=== PATIENT | female | born 1985 | race Caucasian/White ===

== ENCOUNTER → 2020-07-07 | Outpatient (CLI) | payer OTHER ==
[~2020-07-07] MED LIST: LODINE CAP 300300 MG PO
== END ==
LOC: KOH-I 12:06
DX: M54.9 Dorsalgia, unspecified (principal); M47.814 Spondylosis without myelopathy or radiculopathy, thoracic region
CPT/HCPCS: 71046; 72070

== ENCOUNTER 2021-01-31 00:02 | Emergency (ER) | payer OTHER | END 2021-01-31 03:40 | disposition home or self-care (01) | LOC: ER1 00:02 | DX: U07.1 COVID-19 (principal); Z90.49 Acquired absence of other specified parts of digestive tract; Z90.89 Acquired absence of other organs; Z79.899 Other long term (current) drug therapy | CPT/HCPCS: 71045; 99283; U0002 ==

== ENCOUNTER 2021-02-02 15:06 | Emergency (ER) | payer OTHER ==
[~2021-02-02] VITALS: Ht 152.4 cm; Wt 135.6 kg
[2021-02-02] MEDS ORDERED: PROAIR HFA8.5 GM INH (16:28)
[2021-02-02] MEDS ORDERED: BENZONATATE200 MG PO (16:28)
[2021-02-02 19:41] LABS: HEMOGLOBIN 13.1 gm/dl (12.3-15.3); RED BLOOD COUNT 4.52 M/UL (4.00-5.10)
[2021-02-02 19:58] LABS: BUN/CREATININE RATIO 6 (0-10)
[2021-02-02] MEDS ORDERED: IBUPROFEN800 MG PO (23:20)
== END 2021-02-02 23:46 | disposition home or self-care (01) ==
LOC: ER1 15:06
PROVIDERS: Physician Assistant
DX: U07.1 COVID-19 (principal); J12.82 Pneumonia due to coronavirus disease 2019; Z90.49 Acquired absence of other specified parts of digestive tract
CPT/HCPCS: 71045; 80053; 82550; 82553; 83874; 84484; 85025; 85379; 93005; 99285; Q9967

== ENCOUNTER → 2021-07-21 | Outpatient (CLI) | payer OTHER ==
[~2021-07-21] MED LIST changes: +BENZONATATE200 MG PO; +IBUPROFEN800 MG PO; +PROAIR HFA8.5 GM INH
== END ==
LOC: KOH-I 08:36
DX: M25.562 Pain in left knee (principal); M25.561 Pain in right knee
CPT/HCPCS: 73562

== ENCOUNTER → 2022-03-03 | Outpatient (CLI) | payer OTHER ==
[2022-03-03 11:29] LABS: HEMOGLOBIN 13.7 gm/dl (12.3-15.3); RED BLOOD COUNT 4.65 M/UL (4.00-5.10); WHITE BLOOD COUNT 7.2 K/UL (4.5-11.0)
[2022-03-03 11:51] LABS: BUN/CREATININE RATIO 11 (0-10)
[2022-03-04 07:10] LABS: VITAMIN D, 25-HYDROXY 30.5 ng/mL (30.0-100.0)
[2022-03-06 00:06] LABS: ALT (SGPT) P5P 15 IU/L (0-40); APOLIPOPROTEIN A-1 132 mg/dL (116-209); AST (SGOT) P5P 21 IU/L (0-40); BILIRUBIN, TOTAL 0.8 mg/dL (0.0-1.2); CHOLESTEROL, TOTAL 178 mg/dL (100-199); FIBROSIS SCORE 0.25 (0.00-0.21); FIBROSIS STAGE F0-F1 (.); GGT 41 IU/L (0-60); GLUCOSE, SERUM 93 mg/dL (65-99); HAPTOGLOBIN 198 mg/dL (33-278); HEIGHT: 60 in (.); TRIGLYCERIDES 105 mg/dL (0-149); WEIGHT: 264 LBS (.)
== END ==
LOC: LAB 11:04
PROVIDERS: Internal Medicine
DX: Z13.1 Encounter for screening for diabetes mellitus (principal); K76.0 Fatty (change of) liver, not elsewhere classified; E03.9 Hypothyroidism, unspecified; R73.01 Impaired fasting glucose; Z79.899 Other long term (current) drug therapy
CPT/HCPCS: 36415; 80053; 80061; 82172; 82247; 82465; 82947; 82977; 83010; 83036; 83883; 84439; 84443; 84450; 84460; 84478; 85025